=== PATIENT | male | born 2000 | race Hispanic/Latino ===

== ENCOUNTER 2022-09-10 23:31 | Emergency (ER) | payer SELFPAY ==
[2022-09-11 01:02] LABS: Bacteria/HPF None Seen HPF (None Seen); Bilirubin Negative (Negative); Blood, Urine Negative (Negative); CAUTI Indications for Culture Pelvic or flank pain; Clarity Clear (Clear); Glucose, Urine (Dipstick) Normal (Negative); Ketone, Urine Negative (Negative); Leukocyte Negative Leu/uL (Negative); Nitrite Negative (Negative); Protein, Urine (Dipstick) 10 mg/dL (Neg-Trace); RBC/HPF 0-3 HPF (0-3); Squamous Epithelial None Seen HPF (0-3); WBC/HPF 0-3 HPF (0-3)
[2022-09-11 01:13] LABS: Urine Culture Reflex No No
[2022-09-11] MEDS ORDERED: cefTRIAXone (ROCEPHIN) 500 MG VIAL ONE (01:18)
[2022-09-11] MEDS ORDERED: Lidocaine 1% MPF 2 ML VIAL ONE (01:18)
[2022-09-11 19:52] LABS: Chlam.trachomatis by PCR,Urine Not Detected (NotDetected); GC N.gonorrhoeae PCR,UrineVOID Not Detected (NotDetected)
== END 2022-09-11 01:37 | disposition home or self-care (01) ==
LOC: ERS 23:31
DX: Z11.3 Encounter for screening for infections with a predominantly sexual mode of transmission (principal)
CPT/HCPCS: 81001; 87491; 87591; 96372; 99283; J0696